=== PATIENT | female | born 1985 | race Two or more races ===

== ENCOUNTER 2025-02-07 10:41 | Inpatient (IN) | payer OTHER ==
[~2025-02-07] VITALS: Ht 157.5 cm; Wt 81.8 kg
[2025-02-07] MEDS ORDERED: POTA-206 PO (11:00)
[2025-02-07] MEDS ORDERED: FOLI-130 PO (11:00)
[2025-02-07] MEDS ORDERED: GABA-1216 PO (11:00)
[2025-02-07] MEDS ORDERED: SERT-158 PO (11:00)
[2025-02-07] MEDS ORDERED: THIA100T80 PO (11:00)
[2025-02-07] MEDS ORDERED: MULT-264 PO (11:00)
[2025-02-07] MEDS ORDERED: MAGN400T57 PO (11:00)
[2025-02-07] MEDS ORDERED: FURO40TA6 PO (11:00)
[2025-02-07] MEDS ORDERED: MIRT-89 PO (11:00)
[2025-02-07 11:35] LABS: PLATELET COUNT (AUTO) 198 K/uL (150-450); RED BLOOD CELL COUNT(AUTO) 3.66 MIL/uL (4.00-5.20); RED CELL DISTRIBUTION WIDTH 16.3 % (11.5-14.5); WHITE BLOOD COUNT (AUTO) 5.8 K/uL (4.5-11.0)
[2025-02-07 11:48] LABS: CALCIUM, TOTAL 8.2 mg/dL (8.8-10.5); CREATININE 0.57 mg/dL (0.60-1.30); GLOMERULAR FILTR. RATE CALC > 60 mL/min (>60); GLUCOSE,RANDOM 106 mg/dL (70-110); SODIUM SERUM 138 mmol/L (136-145); UREA NITROGEN, BLOOD 2 mg/dL (7-18)
[2025-02-07 11:58] LABS: ASPARTATE AMINOTRANSFERASE 101 U/L (15-37); HCG,QUANTITATIVE < 1 mIU/mL (0-6); TOTAL PROTEIN, SERUM 7.6 g/dL (6.4-8.2)
[2025-02-07] MEDS: LORazepam 2 MG/ML VIAL IVP ONE (14:16)
[2025-02-07] MEDS: POTASSIUM CHLORIDE 20 MEQ ER TABLET PO ONE (14:17)
[2025-02-07] MEDS: MAGNESIUM SULFATE 2 GM, MVI, ADULT NO.1 WITH VIT K 10 ML, THIAMINE 100 MG, FOLIC ACID 1... IV ONE (14:23)
[2025-02-07] MEDS ORDERED: ACETAMINOPHEN 325 MG TABLET PO PRN (14:30)
[2025-02-07] MEDS ORDERED: MAGNESIUM OXIDE 400 MG TABLET PO PRN (14:30)
[2025-02-07] MEDS ORDERED: MAGNESIUM SULFATE 4 GM/WATER 100 ML IV PRN (14:30)
[2025-02-07] MEDS ORDERED: MAGNESIUM SULFATE 2 GM/WATER 50 ML IV PRN (14:30)
[2025-02-07] MEDS ORDERED: ONDANSETRON HCL 4 MG/2 ML VIAL IVP PRN (14:30)
[2025-02-07 17:09] VITALS: BP 95/60; PULSE 83; RESP 16; TEMP 99; O2SAT 99
[2025-02-07] MEDS: HEPARIN SODIUM,PORCINE 5,000 UNITS/ML VIAL SQ SCH (18:27)
[2025-02-07] MEDS: DOCUSATE SODIUM 100 MG CAPSULE PO SCH (21:31)
[2025-02-07 21:43] VITALS: BP 100/65; PULSE 85; RESP 18; TEMP 98.8; O2SAT 97
[2025-02-07] MEDS: 1: MAGNESIUM SULFATE 2 GM, MVI, ADULT NO.1 WITH VIT K 10 ML, THIAMINE 100 MG, FOLIC ACID IV SCH (22:01)
[2025-02-08 04:38] VITALS: BP 111/73; PULSE 78; RESP 18; TEMP 98.4; O2SAT 97
[2025-02-08 06:52] LABS: PLATELET COUNT (AUTO) 153 K/uL (150-450); RED BLOOD CELL COUNT(AUTO) 3.32 MIL/uL (4.00-5.20); RED CELL DISTRIBUTION WIDTH 16.3 % (11.5-14.5); WHITE BLOOD COUNT (AUTO) 3.7 K/uL (4.5-11.0)
[2025-02-08 07:17] LABS: CALCIUM, TOTAL 7.5 mg/dL (8.8-10.5); CREATININE 0.66 mg/dL (0.60-1.30); GLOMERULAR FILTR. RATE CALC > 60 mL/min (>60); GLUCOSE,RANDOM 87 mg/dL (70-110); SODIUM SERUM 142 mmol/L (136-145); UREA NITROGEN, BLOOD 1 mg/dL (7-18)
[2025-02-08 07:33] LABS: ASPARTATE AMINOTRANSFERASE 78.0 U/L (15-37); TOTAL PROTEIN, SERUM 6.2 g/dL (6.4-8.2)
[2025-02-08 08:00] VITALS: BP 113/78; PULSE 77; RESP 18; TEMP 97.7; O2SAT 97
[2025-02-08 08:19] VITALS: BP 110/71; PULSE 80; RESP 20; TEMP 98.2; O2SAT 99
[2025-02-08] MEDS ORDERED: IOHEXOL 300 MG/ML 100 ML VIAL ONE (14:39)
[2025-02-08] MEDS ORDERED: SODIUM CHLORIDE 0.9% 100 ML ONE (14:39)
[2025-02-08] MEDS ORDERED: 0.9% SODIUM CHLORIDE 10 ML SYRINGE IVP ONE (14:39)
[2025-02-08] MEDS: KETOROLAC TROMETHAMINE 30 MG/ML VIAL IVP ONE ×2 (14:51→22:20)
[2025-02-08] MEDS: POTASSIUM CHL 10 MEQ/WATER 50 ML IV PRN (15:42)
[2025-02-08 19:48] VITALS: BP 100/72; PULSE 89; RESP 20; TEMP 98.1; O2SAT 100
[2025-02-08] MEDS ORDERED: SODIUM CHLORIDE 0.9% 500 ML IV ONE (19:49)
[2025-02-08 21:46] LABS: APPEARANCE,URINE CLEAR (CLEAR); GLUCOSE, URINE (UA) NEGATIVE (NEGATIVE); LEUKOCYTE ESTERASE ,URINE NEGATIVE (NEGATIVE); NITRATE,URINE NEGATIVE (NEGATIVE); OCCULT BLOOD,URINE TRACE (NEGATIVE)
[2025-02-08 21:49] LABS: SPECIFIC GRAVITIY, URINE > 1.030 (1.003-1.030)
[2025-02-08 22:00] LABS: SQUAMOUS EPITHELIAL CELL,UR Many /LPF (None Seen)
[2025-02-08 22:20] VITALS: BP 110/65; PULSE 85; RESP 18; TEMP 98.1; O2SAT 99
[2025-02-09] MEDS: POTASSIUM CHLORIDE 20 MEQ ER TABLET PO PRN (02:00)
[2025-02-09 05:10] VITALS: BP 90/55; PULSE 76; RESP 18; TEMP 97.7; O2SAT 97
[2025-02-09 06:37] VITALS: BP 99/65; RESP 18; O2SAT 100
[2025-02-09] MEDS ORDERED: SODIUM CHLORIDE 0.9% 1,000 ML ONE (08:39)
[2025-02-09 08:48] VITALS: BP 105/69; PULSE 77; RESP 18; TEMP 97.7; O2SAT 100
[2025-02-09 15:40] VITALS: BP 108/72; PULSE 75; RESP 18; TEMP 97.9; O2SAT 100
[2025-02-09 20:07] VITALS: BP 102/68; PULSE 80; RESP 18; TEMP 98.2; O2SAT 100
[2025-02-09] MEDS: GABAPENTIN 100 MG CAPSULE PO SCH (22:23)
[2025-02-10 06:03] VITALS: BP 101/70; PULSE 77; RESP 18; TEMP 98.4; O2SAT 96
[2025-02-10 08:10] VITALS: BP 106/71; PULSE 84; RESP 18; TEMP 97.7; O2SAT 100
[2025-02-10] MEDS ORDERED: SODIUM CHLORIDE 0.9% 1,000 ML ONE (08:48)
[2025-02-10] MEDS ORDERED: THIA100T80 PO (13:00)
[2025-02-10] MEDS ORDERED: GABA-1216 PO ×2 (13:00)
[2025-02-10] MEDS ORDERED: FOLI-130 PO (13:00)
[2025-02-10] MEDS ORDERED: MULT-1203 PO (13:00)
[2025-02-10] MEDS ORDERED: LORA1TAB25 PO (13:00)
[2025-02-10] MEDS ORDERED: SPIR-37 PO (13:00)
[2025-02-11] MEDS ORDERED: SPIRONOLACTONE 25 MG TABLET PO SCH (09:00)
== END 2025-02-10 16:56 | disposition home or self-care (01) ==
LOC: EMS 10:47 → EDH 14:21 → 4E 18:01
PROVIDERS: ADMIT Internal Medicine; ATTEND Internal Medicine
DX: K80.20 Calculus of gallbladder without cholecystitis without obstruction (principal); E44.0 Moderate protein-calorie malnutrition; E87.6 Hypokalemia; D64.9 Anemia, unspecified; E83.42 Hypomagnesemia; Y90.8 Blood alcohol level of 240 mg/100 ml or more; F32.A Depression, unspecified; K76.0 Fatty (change of) liver, not elsewhere classified; F41.9 Anxiety disorder, unspecified; F10.139 Alcohol abuse with withdrawal, unspecified; R74.8 Abnormal levels of other serum enzymes; J45.909 Unspecified asthma, uncomplicated; K70.30 Alcoholic cirrhosis of liver without ascites; Z63.72 Alcoholism and drug addiction in family; Z81.1 Family history of alcohol abuse and dependence; Z68.33 Body mass index [BMI] 33.0-33.9, adult
CPT/HCPCS: 74177; 76700; 80048; 80076; 81001; 82040; 83690; 83735; 84132; 84702; 84703; 85025; 96365; 96366; 96375; 99285; G0378; J1644; J1885; J2060; J3411; J3475; J3480; J3490; J7030; J7040; J7050; Q9967; 36415-L1; 36415-TC